=== PATIENT | female | born 1955 | race Caucasian/White ===

== ENCOUNTER 2017-08-10 13:04 | Emergency (ER) | payer OTHER ==
[~2017-08-10] VITALS: Ht 152.4 cm; Wt 113.4 kg
[~2017-08-10 13:04] MED LIST: AMBIEN (MONOGRAP5 MG PO; ATIVAN0.5 MG PO; ATIVAN1 MG PO; CARISOPRODOL250 MG PO; CARISOPRODOL350 MG PO; CLONAZEPAM0.5 MG PO; DILAUDID 4 MG TA4 MG PO; DILAUDID2 MG PO; DONNATAL1 TAB PO; DURAGESIC12 MCG/HR TOP; GABAPENTIN300 MG; HYDROXYZINE HCL25 MG PO; LIDODERM 5% PAT1 PAT TD; LIDODERM 5% PAT1 PAT TOP; LORAZEPAM0.5 MG PO; LYRICA100 M1 PO; LYRICA150 MG PO; MIRALAX17 GM PO; NEURONTIN300 MG PO; NEURONTIN400 MG PO; OXYCODONE AND A1 TA7 PO; OXYCODONE H5 MG/5 M2 PO; PANTOPRAZOLE SO40 MG PO; PERCOCET 325 MG1 TA2 PO; PERCOCET 325 MG1 TA3 PO; PERCOCET 325 MG1 TAB PO; PRILOSEC OTC20 MG PO; REGLAN10 MG PO; SOMA 350MG TAB350 MG PO; SOMA250 M1 PO; SUMATRIPTAN SUC50 MG PO; TOPAMAX25 MG PO; TOPIRAMATE PO; VICODIN 300 MG-1 TAB PO; VOLTAREN GEL1% TOP; ZOFRAN ODT4 M1 SL; ZOFRAN ODT4 MG PO; ZOFRAN ODT4 MG SL; ZOFRAN4 M1 PO; ZOFRAN4 M1 SL; ZOLPIDEM TARTRA10 MG PO
--- NOTE | 2017-08-10 14:53 | ED GENERAL ADULT ---
History of Present Illness General Chief Complaint: Chest Pain Stated Complaint: CHEST PAIN INTO BACK AND EAR Source: patient, family Exam Limitations: no limitations Allergies Coded Allergies: erythromycin base (PT DOES NOT REMEMBER 06/13/15) penicillin V (RASH A BABY 06/13/15) NSAIDS (Non-Steroidal Anti-Inflamma (Severe, NAUSEA 06/13/15) tramadol (Intermediate, VOMITING 06/13/15) aspirin (ULCER 06/13/15) Reconcile Medications Carisoprodol (SOMA) 250 MG TABLET 1 TAB PO TID SPASMS Carisoprodol (Soma 350MG Tab) 350 MG TAB 1 TAB PO TID PRN MUSCLE SPASMS Lorazepam (Ativan) 0.5 MG TAB 1 TAB PO Q6P PRN anxiety Ondansetron (Zofran Odt) 4 MG TAB.RAPDIS 1 TAB SL Q6P PRN NAUSEA/VOMITING Pantoprazole Sodium 40 MG TABLET.DR 1 TAB PO DAILY AC GI (Reported) Pregabalin (Lyrica) 150 MG CAPSULE 1 CAP PO TID NEUROPATHY (Reported) Pregabalin (Lyrica) 100 MG CAPSULE 1 CAP PO TID ANXIETY Triage Note: PT TO ER FROM [facility] IN [place] W/ DAUGHTER. C/C 45 MIN EPISODE MID STERNAL SHARP CHEST PAIN RADIATING TO RIGHT JAW/EAR. +SOB, +NAUSEA, +DIAPHORESIS. PATIENT STATES THIS HAS HAPPENED BEFORE, NO KNOWN HX OF OK. HX OF TIA/CVA IN PAST. EKG COMPLETE [facility] AND SHOWN TO DR. DEMARCO Triage Nurses Notes Reviewed? yes Onset: Abrupt Duration: hour(s): Timing: recent history HPI: 08/10/17 3 PM 62-year-old female presents to the emergency department after severe retrosternal chest pain that radiated to her jaw. The patient states that she's had intermittent pain in the past. Now at approximately 12 PM today she developed severe retrosternal chest pain that radiated to her neck. Currently she is pain-free. Her EKG reveals nonspecific ST-T wave abnormality, that is unchanged from old. (William Demarco DO) Vital Signs & Intake/Output Vital Signs & Intake/Output Vital Signs Date Time Temp Pulse Resp B/P B/P Pulse O2 O2 Flow FiO2 Mean Ox Delivery Rate 08/10 2024 98.0 69 20 126/87 98 Room Air 05/03 1757 96.0 67 18 105/58 93 Room Air 08/10 1615 97.2 72 20 128/70 94 08/10 1317 96.2 80 26 128/86 100 Room Air (Aurora DUNBAR,Panda) Past History Travel History Traveled to [place] past 21 day No Medical History Any Pertinent Medical History? see below for history Neurological: TIA X 2, MIGRAINES SEIZURES?, NEUROPATHY, EENT: POCKET IN THROAT Cardiovascular: NSTEMI Respiratory: bronchitis Gastrointestinal: irritable bowel syndrome, ABDOMINAL ADHESIONS, Renal: CHRONIC UTI'S Musculoskeletal: muscle spasmS TMJ, E.B. VIRUS NEUROPATHIC PAIN Psychiatric: anxiety, BY REPORT, AGORAPHOBIA, CHRONIC DEPRESSION, ptsd, INSOMNIA. AGORAPHOBIA, Endocrine: PARATHYROID DISEASE FIBROMYALGIA Blood Disorders: HEMOTOMACROCIS Cancer(s): 1UMPECTOMY, ? PITUATRY TUMOR CERTIFIED [employer]ER/Reproductive: HYSTERECTOMY History of MRSA: No History of VRE: No History of CDIFF: No Surgical History Surgical History: non-contributory Psychosocial History Who do you live with Patient/Self Services at Home Home Health Aide What is your primary language Wolof Tobacco Use: Current Daily Use Daily Tobacco Use Amount/Type: => 5 Cigarettes daily Family History Family History, If Any: MOTHER FH: stomach cancer FATHER FH: myocardial infarction Hx Contributory? No (William Demarco DO) Review of Systems Review of Systems Constitutional: Denies: fever. EENTM: Denies: visual changes. Respiratory: Denies: short of breath. Cardiovascular: Reports: chest pain. GI: Reports: no symptoms. Genitourinary: Reports: no symptoms. Musculoskeletal: Reports: no symptoms. Skin: Reports: no symptoms. Neurological/Psychological: Reports: no symptoms. Hematologic/Endocrine: Reports: no symptoms. Immunologic/Allergic: Reports: no symptoms. (William Demarco DO) Physical Exam Physical Exam General Appearance: alert, awake, anxious, moderate distress Head: atraumatic, normal appearance Eyes: Bilateral: normal appearance, PERRL, EOMI. Ears, Nose, Throat: normal pharynx, normal ENT inspection Neck: supple Respiratory: no respiratory distress Cardiovascular: regular rate/rhythm Peripheral Pulses: 4+ radial (R), 4+ radial (L) Gastrointestinal: non-tender Back: decreased range of motion Extremities: pedal edema Neurologic/Psych: no motor/sensory deficits, awake, alert, oriented x 3 Skin: intact, normal color, warm/dry Core Measures ACS in differential dx? Yes No ASA d/t Allergy CVA/TIA Diagnosis: No Sepsis Present: No Sepsis Focused Exam Completed? No (William Demarco DO) Progress Differential Diagnoses I considered the following diagnoses in my evaluation of the patient: [Acute coronary syndrome, pulmonary embolism, costochondritis, esophagitis] Initial ED EKG: NSR, nonspecific ST T wave chg Prior EKG: unchanged (William Demarco DO) Differential Diagnoses I considered the following diagnoses in my evaluation of the patient: Plan of Care: Orders Procedure Date/time Status TROPONIN LEVEL 08/10 1899 Complete EKG 08/10 190 Active TROPONIN LEVEL 08/10 145 Complete D-DIMER 08/10 145 Complete COMPREHENSIVE METABOLIC PANEL 08/10 145 Complete CBC WITHOUT DIFFERENTIAL 08/10 145 Complete EKG 08/10 1306 Active Laboratory Tests 08/10/17 1945: Troponin I < 0.01 08/10/17 1518: Anion Gap 16, Estimated GFR > 60, BUN/Creatinine Ratio 18.9, Glucose 143 H, Calcium 9.9, Total Bilirubin 0.9, AST 50 H, ALT 63 H, Alkaline Phosphatase 105 , Troponin I < 0.01, Total Protein 7.8, Albumin 4.5, Globulin 3.3, Albumin/ Globulin Ratio 1.4, D-Dimer High Sensitivty 549 H, CBC w Diff MAN DIFF ORDERED, RBC 4.97, MCV 94.2, MCH 32.2 H, MCHC 34.2, RDW 13.2, MPV 9.4, Gran % 51.4, Lymphocytes % 39.0, Monocytes % 7.4, Eosinophils % 1.4, Basophils % 0.8, Absolute Granulocytes 6.0, Segmented Neutrophils 45, Band Neutrophils 4, Absolute Lymphocytes 4.6 H, Lymphocytes 37, Monocytes 11 H, Absolute Monocytes 0.9 H, Eosinophils 1, Absolute Eosinophils 0.2, Basophils 2, Absolute Basophils 0.1, Platelet Estimate ADEQUATE, Normochromic RBCs VERIFIED, Anisocytosis 1+, Macrocytic Cells 1+ Diagnostic Imaging: Viewed by Me: CT Scan. Discussed w/RAD: CT Scan. Radiology Impression: 1. No pulmonary embolism. 2. Subsegmental atelectasis versus scarring within the right lower lobe and right middle lobe. Comments: Patient upset about length of stay in emergency department and requests discharge despite second troponin results currently unavailable. She was informed of the risk and complications including acute OK she accepts and acknowledges. (Panda Simon MD) Departure Departure Condition: Stable Clinical Impression Primary Impression: Chest pain Referrals: Jarrell Melendez APRN (PCP/Family) Departure Forms: Customer Survey General Discharge Information Comments The patient had an elevated D-dimer. CTA was done which was negative for pulmonary embolism. Initial EKG and troponin were negative. She is pending repeat troponin and EKG. The patient was signed out to Dr. Simon at 7 PM (William Demarco DO) Departure Time of Disposition: 2010 Disposition: HOME OR SELF CARE (Panda Simon MD) Critical Care Note Critical Care Note Critical Care Time: 30-74 min (William Demarco DO)
[2017-08-10 15:31] LABS: ABSOLUTE BASOPHIL COUNT 0.1 /CUMM (0.0-0.2); ABSOLUTE EOSINOPHIL COUNT 0.2 /CUMM (0.0-0.7); ABSOLUTE LYMPH COUNT 4.6 /CUMM (1.2-3.4); ABSOLUTE MONOCYTE COUNT 0.9 /CUMM (0.10-0.60); BASOPHIL % 0.8 % (0.0-2.0); EOSINOPHIL % 1.4 % (0-5); GRANULOCYTE % 51.4 % (42.2-75.2); HEMATOCRIT 46.8 % (37-47); MEAN CORPUSCULAR HGB 32.2 PG (27.0-31.0); MEAN CORPUSCULAR HGB CONC 34.2 G/DL (33.0-37.0); MEAN CORPUSCULAR VOLUME 94.2 FL (81.0-99.0); MEAN PLATELET VOLUME 9.4 FL (7.4-10.4); PLATELET COUNT 282 /CUMM (130-400); RBC DISTRIBUTION WIDTH 13.2 % (11.5-14.5); RED BLOOD CELL CT 4.97 /CUMM (4.20-5.40); WHITE BLOOD CELL COUNT 11.7 /CUMM (4.8-10.8)
--- NOTE | 2017-08-10 18:05 | CT SCAN REPORT ---
EXAMINATION: CT ANGIOGRAM OF THE CHEST WITH AND WITHOUT CONTRAST (CT PULMONARY ANGIOGRAM FOR PE) CLINICAL INFORMATION: Shortness of breath. Elevated d-dimer. COMPARISON: Chest radiograph from 08/29/2014 TECHNIQUE: Prior to contrast administration, noncontrast localization images were obtained. Subsequently, multidetector volumetric imaging was performed from the thoracic inlet to below the diaphragms following the administration of 95 mL Optiray 320 intravenous contrast. No contrast reaction reported. Sagittal, coronal, and MIP oblique sagittal reformatted images were obtained on the CT workstation, uploaded to PACS, and reviewed. Total exam dose-length product 551 mGy-cm. FINDINGS: QUALITY OF STUDY/CONTRAST BOLUS: Satisfactory PULMONARY ARTERIES: No central or segmental pulmonary emboli. THORACIC AORTA: No aneurysm or dissection. LUNG: The central airways are patent. There is linear atelectasis/scarring seen at the right base and in the right middle lobe. No dense consolidation. 0.2 cm left upper lobe calcified granuloma noted. PLEURA: No pleural effusion or pneumothorax. MEDIASTINUM: Normal heart size. No pericardial effusion. No hilar or mediastinal lymphadenopathy. No evidence of septal bowing or right heart strain. CHEST WALL/AXILLA: No axillary or internal mammary lymphadenopathy. OSSEOUS STRUCTURES: No acute or suspicious osseous abnormality. Mild degenerative changes of the spine. UPPER ABDOMEN: Uniformly decreased attenuation of the liver suggesting hepatic steatosis. No reflux of contrast into the hepatic veins to suggest elevated right heart pressures. IMPRESSION: 1. No pulmonary embolism. 2. Subsegmental atelectasis versus scarring within the right lower lobe and right middle lobe. VTE: negative
[2017-08-10 20:25] VITALS: BP 126/87
== END 2017-08-10 20:27 ==
LOC: ERH 13:04
PROVIDERS: Emergency Medicine
DX: R07.9 Chest pain, unspecified (principal)
CPT/HCPCS: 93005; 93010